=== PATIENT | male | born 1985 | race Caucasian/White ===

== ENCOUNTER 2020-07-26 19:19 | Emergency (ER) | payer SELFPAY ==
[~2020-07-26] VITALS: Ht 170.2 cm; Wt 93.2 kg
[2020-07-26 19:25] VITALS: BP 155/91; Ht 170.2 cm; Wt 93.2 kg
[2020-07-26 20:36] LABS: BASOPHILS 0.2 % (0-2); EOSINOPHILS 0.7 % (0-7); HEMATOCRIT 46.7 % (42.0-54.0); HEMOGLOBIN 15.9 g/dL (13.5-17.5); IMMATURE GRANULOCYTES 0.2 % (0-5); LYMPHOCYTE ABS# 2.93 10x3/uL (1.32-3.57); MCH 30.2 pg (26.0-34.0); MCV 88.6 fL (80.0-100.0); MEAN PLATELET VOLUME 9.6 fL (7.4-10.4); MONOCYTES 5.5 % (2-11); NEUTROPHIL ABS# 8.49 10x3/uL (1.78-5.38); NEUTROPHILS 69.4 % (40-80); PLATELET COUNT 237 10x3/uL (130-400); RBC 5.27 10x6/uL (4.20-6.10); RDW 12.9 % (11.5-14.5); WBC 12.2 10x3/uL (4.8-10.8)
[2020-07-26 20:44] LABS: ALBUMIN 4.1 g/dL (3.4-5.0); ALKALINE PHOSPHATASE 85 U/L (30-120); ALT (SGPT) 64 U/L (10-68); BILIRUBIN - TOTAL 0.39 mg/dL (0.2-1.3); CALC OSMOLALITY 277 mosm/kg (275-300); CALCIUM 9.2 mg/dL (8.5-10.1); CARBON DIOXIDE 23.9 mmol/L (21.0-32.0); CHLORIDE - SERUM 103 mmol/L (98-107); CREATININE - SERUM 1.1 mg/dL (0.6-1.3); GLUCOSE 92 mg/dL (74-106); PROTEIN - SERUM 7.8 g/dL (6.4-8.2); SODIUM 137 mmol/L (136-145); UREA NITROGEN 25 mg/dL (7-18); eGFR NON AFRICAN AMERICAN 81 mL/min (90-120)
[2020-07-26 21:34] LABS: POTASSIUM - SERUM 6.3 mmol/L (3.5-5.1)
== END 2020-07-26 22:14 | disposition left against medical advice (07) ==
LOC: D.ER 19:19
PROVIDERS: Family Medicine
DX: S46.211A Strain of muscle, fascia and tendon of other parts of biceps, right arm, initial encounter (principal); E87.5 Hyperkalemia; Z53.29 Procedure and treatment not carried out because of patient's decision for other reasons; X50.0XXA Overexertion from strenuous movement or load, initial encounter; Y93.9 Activity, unspecified; Y92.9 Unspecified place or not applicable